=== PATIENT | female | born 1990 | race Caucasian/White ===

== ENCOUNTER 2019-07-02 17:35 | Emergency (ER) | payer MEDICAID ==
[~2019-07-02] VITALS: Ht 157.5 cm; Wt 52.2 kg
[2019-07-02 17:40] VITALS: BP 131/81
--- NOTE | 2019-07-02 17:40 | NUR ---
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 pt aao x4 and ambulatory. calm and cooperative. skin clean and intact. no s/s of withdraw such as agitation, tremor noted at this time. no cardiac or pulmonary distress noted. pt stated "It feels something wrong when I pee." denied hematuria.
--- NOTE | 2019-07-02 17:50 | NUR ---
ED Nurse Note: urine sent to lab. ERPA assessing pt.
[2019-07-02 17:57] LABS: APPEARANCE,URINE CLOUDY; BILIRUBIN, URINE NEGATIVE (NEGATIVE); COLOR,URINE PALE YELLOW; GLUCOSE, URINE (UA) NEGATIVE (NEGATIVE); KETONES,URINE NEGATIVE (NEGATIVE); LEUKOCYTE ESTERASE ,URINE 3+ (NEGATIVE); NITRITE,URINE NEGATIVE (NEGATIVE); PH,URINE 8 (4.5-8.0); PROTEIN,URINE 2+ (NEGATIVE); UROBILINOGEN,URINE NORMAL MG/DL (0.0-1.0)
--- NOTE | 2019-07-02 18:10 | NUR ---
ED Nurse Note: Wet Mount specimen sent.
[2019-07-02] MEDS ORDERED: Lidocaine 1% MPF 10mg/ml 5ml INJ ONE (18:15)
--- NOTE | 2019-07-02 18:44 | Emergency Room Report ---
History of Present Illness General Chief Complaint: Female Urogenital Problems Source: Patient Present Illness HPI 29-year-old female presents to the emergency department complaining of 3 out of 10 severity dysuria as well as pelvic discomfort x3 days. Patient reports she recently had a relapse and a 6-day binge on meth. Patient states that she had unprotected intercourse with at least 3 different males. Patient states she is also noticed some discharge as well. She denies fevers or chills. She denies abdominal pain or tenderness. She denies low back pain. She denies . She denies genital lesions or rashes. She reports having some urinary frequency as well she denies hematuria. No other aggravating or relieving factors at this time. Allergies: Coded Allergies: No Known Allergies (Unverified , 07/02/19) COVID-19 Screening Contact w/high risk pt: No Recent Travel to affected area: No Experienced COVID-19 symptoms?: No Patient History Past Medical History: see triage record Past Surgical History: none Social History: Reports: drug use - meth Last Menstrual Period: June 21, 2019 Now: No : 0 Para: 0 Reviewed Nursing Documentation: PMH: Agreed; PSxH: Agreed Nursing Documentation-PMH Past Medical History: No Stated History Review of Systems All Other Systems: negative except mentioned in HPI Physical Exam Vital Signs Date Time Temp Pulse Resp B/P (MAP) Pulse Ox O2 Delivery O2 Flow Rate FiO2 07/02/19 17:33 98.4 77 19 131/81 (98) 100 Room Air Sp02 EP Interpretation: reviewed, normal General Appearance: no apparent distress, alert, GCS 15, non-toxic Head: normocephalic, atraumatic Eyes: bilateral eye normal inspection, bilateral eye PERRL ENT: hearing grossly normal, normal voice Neck: full range of motion Respiratory: lungs clear, normal breath sounds, speaking full sentences Cardiovascular #1: regular rate, rhythm Gastrointestinal: normal bowel sounds, non tender, soft, non-distended, no guarding Rectal: deferred Genitourinary: normal inspection, no CVA tenderness, adnexa normal, cervix normal, other - milky white vaginal d/c noted on exam. Negative CMT Musculoskeletal: normal range of motion, gait/station normal, non-tender Neurologic: alert, motor strength/tone normal, oriented x3, sensory intact, responsive, speech normal Psychiatric: judgement/insight normal Skin: no rash Lymphatic: no adenopathy Medical Decision Making PA Attestation Dr. Mccarthy is my supervising Physician whom patient management has been discussed with. Diagnostic Impression: Primary Impression: Bacterial vaginosis Additional Impressions: Contact with or exposure to venereal diseases UTI (urinary tract infection) Qualified Codes: N30.00 - Acute cystitis without hematuria ER Course 29-year-old female presents to the emergency department complaining of 3 out of 10 severity dysuria as well as pelvic discomfort x3 days. Patient reports she recently had a relapse and a 6-day binge on meth. Patient states that she had unprotected intercourse with at least 3 different males. Patient states she is also noticed some discharge as well. She denies fevers or chills. She denies abdominal pain or tenderness. She denies low back pain. She denies . She denies genital lesions or rashes. She reports having some urinary frequency as well she denies hematuria. No other aggravating or relieving factors at this time. Ddx considered but are not limited to UTi , Pyelo, STI, Stone, Cystitis, vaginal laceration, vaginitis. Vital signs: are WNL, pt. is afebrile H& PE are most consistent with: Vaginitis ORDERS: - UA labs are attached : moderate elevation in inflammatory markers, nitrite negative, few bacteria. - Wet Mount : Few clue cells and few bacteria. No trichomoniasis no yeast -Urine Hcg: negative ED INTERVENTIONS: -Rocephin 250IU IM - Azithromycin 1g DISCHARGE: At this time pt. is stable for d/c to home. Will provide printed patient care instructions, and any necessary prescriptions. Care plan and follow up instructions have been discussed with the patient prior to discharge. discussed with the patient prior to discharge. Labs Test 07/02/19 17:45 Urine Color Pale yellow Urine Appearance Cloudy Urine pH 8 (4.5-8.0) Urine Specific [place] 1.010 (1.005-1.035) Urine Protein 2+ (NEGATIVE) Urine Glucose (UA) Negative (NEGATIVE) Urine Ketones Negative (NEGATIVE) Urine Blood 2+ (NEGATIVE) Urine Nitrite Negative (NEGATIVE) Urine Bilirubin Negative (NEGATIVE) Urine Urobilinogen Normal MG/DL (0.0-1.0) Urine Leukocyte Esterase 3+ (NEGATIVE) Urine RBC 0-2 /HPF (0 - 2) Urine WBC Tntc /HPF (0 - 2) Urine Squamous Epithelial Cells None /LPF (NONE/OCC) Urine Bacteria Few /HPF (NONE) Urine HCG, Qualitative Negative (NEGATIVE) Last Vital Signs Date Time Temp Pulse Resp B/P (MAP) Pulse Ox O2 Delivery O2 Flow Rate FiO2 07/02/19 17:40 98.4 77 19 131/81 100 Room Air Disposition: HOME, SELF-CARE Condition: Stable Scripts Nitrofurantoin Monohyd/M-Cryst* (MACROBID 100 MG*) 100 Mg Capsule 100 MG ORAL EVERY 12 HOURS for 5 Days, #10 CAP Prov: Kimmy Patton 07/02/19 Metronidazole* (FLAGYL*) 500 Mg Tablet 500 MG ORAL BID for 7 Days, #14 TAB Prov: Kimmy Patton 07/02/19 Referrals: NON PHYSICIAN (PCP) Patient Instructions: Vaginitis Additional Instructions: Take medications as directed. Follow up with a Primary Care Provider in 3-5 days, even if your symptoms have resolved. Return sooner to ED if new symptoms occur, or current symptoms become worse. - Please note that this Emergency Department Report was dictated using [employer] machine set up operator technology software, occasionally this can lead to erroneous entry secondary to interpretation by the dictation equipment. Kimmy Patton Jul 02, 2019 18:44
[2019-07-02] MEDS ORDERED: Azithromycin 250mg tab ORAL ONE (18:45)
[2019-07-02] MEDS ORDERED: METRONIDAZOLE500 MG ORAL (18:46)
--- NOTE | 2019-07-02 18:53 | NUR ---
ER DISCHARGE NOTE: Patient is cleared to be discharged per PA, pt is aox4, on room air, with stable vital signs. pt was given dc and prescription instructions, pt was able to verbalize understanding, pt id band removed . pt is able to ambulate with steady gait. pt took all belongings.
[2019-07-02 18:58] VITALS: BP 127/80
[2019-07-02] MEDS ORDERED: NITROFURANTOIN100 M2 ORAL (19:37)
== END 2019-07-02 18:58 | disposition home or self-care (01) ==
LOC: EDBD 17:35 → EMR 18:01
DX: N76.0 Acute vaginitis (principal); N30.00 Acute cystitis without hematuria; Z11.3 Encounter for screening for infections with a predominantly sexual mode of transmission
CPT/HCPCS: 81003; 81025; 87086; 87181; 87210; 96372; 96374; J0696; Q0144; Z7502; 99284